=== PATIENT | male | born 1995 | race Caucasian/White ===

== ENCOUNTER → 2020-12-02 10:37 | Outpatient (CLI) | payer BC, SELFPAY ==
--- NOTE | 2020-12-02 10:41 | US_ITS ---
PROCEDURE: US EXTREMITY LT LIMITED CLINICAL INDICATION: MASS OF LT LOWER LEG COMPARISON: No exams were available for comparison FINDINGS: Ultrasound is performed of the palpable abnormality in the lateral aspect of the left knee. There is a complex mass measuring 2 x 2 cm. Anteriorly the mass has a complex cystic appearance with thickened wall and posteriorly a curvilinear cystic component wider anteriorly than posteriorly. Etiology of this is uncertain. Suggest MRI of the knee for more thorough evaluation without and with contrast. IMPRESSION: Complex cystic mass in the subcutaneous soft tissues of the left knee laterally etiology undetermined. Consider MRI of the knee without and with contrast for further evaluation. Dictated by: Jacinto Rubio MD 12/02/2020 16:40 Jacinto Rubio MD in [place] 12/02/2020 16:40
== END ==
PROVIDERS: PCP Physician Assistant; Visit Provider Physician Assistant
DX: R22.42 Localized swelling, mass and lump, left lower limb (principal)
CPT/HCPCS: 76882

== ENCOUNTER → 2020-12-15 13:34 | Outpatient (CLI) | payer BC, SELFPAY ==
--- NOTE | 2020-12-15 13:36 | MR_ITS ---
PROCEDURE INFORMATION: Exam: MR Left Lower Extremity Joint Without and With Contrast, Knee Exam date and time: 12/15/2020 1:36 PM Age: 25 years old Clinical indication: Other: Mass on left knee; Additional info: Leg mass TECHNIQUE: Imaging protocol: MR of the Left lower extremity joint without and with contrast. Exam focused on the knee. Contrast material: PROHANCE; Contrast volume: 19 ml; Contrast route: IV; COMPARISON: US EXTREMITY LT LIMITED 12/02/2020 10:43 AM FINDINGS: Limitations: The 4 mm slice thickness utilized on the majority of the sequences is suboptimal for assessing the menisci. Bones and cartilage: Increased T2 signal within the medial femoral condyle cartilage at the level of the posterior horn of the medial meniscus is favored to represent grade I chondromalacia (series 4/image 8). There is no acute fracture or dislocation. No aggressive bone lesions are present. A benign bone island is incidentally noted. Joint spaces: No significant joint effusion. Medial meniscus: A probable vertical longitudinal tear involves the medial meniscus posterior horn near the apex and posterior root (series 4/images 9-11, series 9/images 1-3). Lateral meniscus: The lateral meniscus shows no evidence of tear. Anterior cruciate ligament: The anterior cruciate ligament is poorly delineated with an equivocal few fibers remaining intact. A chronic high-grade partial-thickness tear is suspected. Recommend correlation with clinical stability. Posterior cruciate ligament: The posterior cruciate ligament is intact. Medial capsule and supporting structures: The medial collateral ligament is intact. Lateral capsule and supporting structures: The lateral collateral ligament complex is intact. Extensor mechanism of knee: No tear. Variable signal involving the extensor mechanism on the sagittal sequence is likely due to magic angle artifact. Muscles: Unremarkable. Soft tissues: The palpable mass along the lateral aspect of the left knee corresponds to a benign multiloculated ganglion cyst that arises from the tibiofibular joint. The cyst has normal mild peripheral enhancement without central enhancement. The cysts has an S-shaped configuration involving a 1.8 x 1.7 x 1.5 cm region, as measured on series 3/image 20 and series 7/image 15. The small neck arising from the tibiofibular joint is best seen on series 7/image 17 and series 4/images 20-22. An additional ganglion cyst arises from the posterior aspect of the tibiofibular joint involving approximately a 1.6 x 0.6 cm region (series 7/image 21). IMPRESSION: 1. Palpable mass along the lateral aspect of the left knee corresponds to a benign ganglion cyst measuring 1.8 x 1.7 x 1.5 cm arising from the tibiofibular joint. 2. Poorly delineated anterior cruciate ligament with a chronic high-grade partial-thickness tear suspected. Recommend correlation with clinical stability. 3. Probable longitudinal tear of the medial meniscus posterior horn near the apex. 4. 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 5. Additional ganglion cyst arising from the posterior aspect of the tibiofibular joint measuring 1.6 x 0.6 cm.
== END ==
PROVIDERS: PCP Physician Assistant; Visit Provider Physician Assistant
DX: R22.40 Localized swelling, mass and lump, unspecified lower limb (principal)
CPT/HCPCS: 73723; A9576

== ENCOUNTER → 2020-12-21 16:21 | Outpatient (CLI) | payer BC, SELFPAY ==
[2020-12-21 17:32] LABS: Basophils % 0.6 % (0.1-2.0); Eosinophils % 0.4 % (0.1-12.0); Hematocrit 45.5 % (42.0-52.0); Lymphocytes # 0.6 K/mm3 (0.7-4.5); Lymphocytes % 11.4 % (10-50); Mean Corpuscular HGB Conc 32.9 g/dL (31.8-35.4); Monocytes # 0.7 K/mm3 (0.1-1.0); Monocytes % 13.1 % (1.7-9.3); Neutrophils # 4.2 K/mm3 (1.8-7.8); Neutrophils % 74.5 % (37.0-80.0); Platelet Count 199 K/mm3 (142-424); Red Blood Count 5.17 M/mm3 (4.60-6.20); Red Cell Distribution Width 11.9 % (11.5-17.5); White Blood Count 5.6 K/mm3 (4.8-10.8)
[2020-12-21 18:44] LABS: Strep Scrn Group A (Rapid) Negative (Negative)
== END ==
PROVIDERS: PCP Nurse Practitioner; Visit Provider Nurse Practitioner
DX: Z20.822 Contact with and (suspected) exposure to COVID-19 (principal); U07.1 COVID-19; J02.9 Acute pharyngitis, unspecified
CPT/HCPCS: 85025; 87275; 87276; 87430; C9803; U0003; U0005

== ENCOUNTER → 2020-12-29 15:48 | Outpatient (CLI) | payer BC, SELFPAY ==
[2020-12-29] VITALS (7 sets, daily range): BP systolic 107–130; BP diastolic 63–73; PULSE 73–83; RESP 18; TEMP 36.4–36.7; O2SAT 94–97
== END ==
PROVIDERS: PCP Nurse Practitioner; Visit Provider Nurse Practitioner
DX: U07.1 COVID-19 (principal)
CPT/HCPCS: 96365

== ENCOUNTER 2021-02-05 19:10 | Emergency (ER) | payer BC, SELFPAY ==
[2021-02-05 19:18] VITALS: BP 148/76; PULSE 85; RESP 16; TEMP 37.1; O2SAT 97; BMI 38.9
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
[2021-02-05 20:11] VITALS: BP 148/76; PULSE 85; RESP 16; TEMP 37.1
== END 2021-02-05 20:13 | disposition home or self-care (01) ==
PROVIDERS: Emergency Provider Nurse Practitioner; PCP Nurse Practitioner
DX: T23.242A Burn of second degree of multiple left fingers (nail), including thumb, initial encounter (principal); X02.0XXA Exposure to flames in controlled fire in building or structure, initial encounter; Y92.010 Kitchen of single-family (private) house as the place of occurrence of the external cause; Z23 Encounter for immunization; Z88.0 Allergy status to penicillin
CPT/HCPCS: 90471; 90715; 99202; G0463

== ENCOUNTER 2022-06-30 10:22 | Emergency (ER) | payer BC, SELFPAY ==
[2022-06-30 11:03] VITALS: BP 124/70; PULSE 85; RESP 18; TEMP 36.8; O2SAT 97; BMI 39.6
--- NOTE | 2022-06-30 11:11 | EXP.UTC ---
Discharge Plan Disposition Patient Disposition: Home, Self-Care Condition: Good Prescriptions Prescriptions: New azithromycin [Zithromax Z-Efarin] 250 mg tablet See Rx Instructions .ROUTE .COMPLEX 5 Days Qty: 6 0RF Rx Instructions: For 250 mg dose pack: take 500 mg today (day 1), then 250 mg for 4 days (days 2-5) methylprednisolone [Medrol (Efrain)] 4 mg tablets,dose pack See Rx Instructions .Route .COMPLEX 6 Days Qty: 21 0RF Rx Instructions: taper pack; Referrals Follow up/Referrals: Provider,Referral, [Primary Care Provider] - See instructions Activity Restrictions/Add. Instructions Additional Instructions/Restrictions: *Monitor Temp, Over the counter Motrin or Tylenol as directed/as needed Tylenol every 4 hours and Motrin every 6 hours (as long as your family doctor has told you that you can take it) for fever or pain. and straight to ER if unable to lower temp less than 101.0 after medication given *Warm salt water gargles may help to soothe the throat *Throat Lozenges? *Warm fluids like tea with honey may help to soothe the throat? *Sleep elevated *Humidifier/Vaporizer Your throat swab was sent for culture. Those results are typically sent to your primary care. Be sure to follow up in 2-3 days with your family doctor/primary care physician if no improvement so they can review those result and treat if necessary. If you don?t have a primary care doctor, I recommend you get one but in the mean time, you will have to return to a walk in clinic Follow up IMMEDIATELY for new or worsening symptoms or no Noticeable improvement over the next 48-72 hours. 911 for difficulty breathing or swallowing Clinical Impressions Clinical Impression: URI (upper respiratory infection) Stand Alone Forms Stand Alone Forms: Work/School Release Instructions Patient Instructions: Sore Throat, DI for Sinusitis [place]charge [place] Cindi [place] [facility] [place] General Stated complaint: sore throat, congestion, body aches, [place] Mode of Arrival: Ambulatory Source of Information: Patient Limitations: No Limitations Time Seen by Provider: 06/30/22 11:11 Description of Symptoms (Recalled from Triage Doc. by RN): PT STATES HE HAS HAD A SORE THROAT, BODY ACHES, HEADACHE, CONGESTION, COUGH, AND FEVER FOR 2 DAYS HEENT Symptoms (Recalled from RN notes): Yes (SORE THROAT, HEADACHE) Resp Symptoms (Recalled from RN notes): Yes (COUGH) Skin Symptoms (Recalled from RN notes): No MS Symptoms (Recalled from RN notes): No Functional Status (Recalled from RN notes): WNL History of Present Illness Provider Complaint: Patient states that he has been having sinus pressure and pain on and off for close to a week but for the last couple of days he has been having fever, chills, body aches, headache and sore throat States that today he was feeling worse so he came in Related Data Previous Rx's Medication Instructions Recorded azithromycin 250 mg tablet See Rx Instructions PO .COMPLEX 5 06/30/22 (Zithromax Z-Efrain) days #6 tabs methylprednisolone 4 mg tablets in See Rx Instructions .Route 06/30/22 a dose pack (Medrol (Efrain)) .COMPLEX 6 days #21 tabs Allergies Allergy/AdvReac Type Severity Reaction Status Date / Time Penicillins Allergy Intermediate Verified 12/29/20 11:34 Worker's Comp Is this a Worker's Comp case?: No Is this an H Worker's Comp?: No Is this a Rodney Worker's Comp?: No [facility] Disclaimer: The information contained in this section may have been updated after the patient was seen, as this information can be updated by other users. Social History Smoking Status: Unknown if ever smoked alcohol intake: never current occupational status: employed Travel in the last 8 weeks: None ROS Obtained: Yes All systems reviewed & no additional complaints except as documented and Yes Systems reviewed as appropriate & no additional complaints except as documented ENT Ears, Nose,
[2022-06-30 11:14] LABS: UTC Strep Screen (Rapid) Negative (Negative)
[2022-06-30 11:57] VITALS: BP 124/70; PULSE 85; RESP 18; TEMP 36.8; O2SAT 97
[2022-06-30 12:24] LABS: Influenza A, PCR Not Detected (NotDetected); Influenza B, PCR Not Detected (NotDetected)
[2022-06-30 13:52] LABS: Coronavirus 19, PCR Detected (NotDetected)
== END 2022-06-30 12:07 | disposition home or self-care (01) ==
PROVIDERS: Emergency Provider Nurse Practitioner
DX: U07.1 COVID-19 (principal); J01.90 Acute sinusitis, unspecified; J06.9 Acute upper respiratory infection, unspecified; R07.0 Pain in throat; R50.9 Fever, unspecified
CPT/HCPCS: 87880; 99212; 99214; C9803; G0463; U0003; U0005

== ENCOUNTER 2023-09-18 16:31 | Emergency (ER) | payer BC, SELFPAY ==
--- NOTE | 2023-09-18 16:57 | EXP.UTC ---
Discharge Plan Disposition Patient Disposition: Home, Self-Care Condition: Good Prescriptions Prescriptions: New ondansetron 4 mg Tablet,Disintegrating 4 mg PO Q8H PRN (Reason: Nausea) Qty: 12 0RF Referrals Follow up/Referrals: Provider,Referral, MD [Primary Care Provider] - See instructions Activity Restrictions/Add. Instructions Additional Instructions/Restrictions: Drink plenty of fluids. Take tylenol for pain or fever. Take the medications as directed. Follow up with your regular doctor. GO TO THE ER FOR ANY WORSENING SYMPTOMS Clinical Impressions Clinical Impression: Gastroenteritis Stand Alone Forms Stand Alone Forms: Work/School Release Instructions Patient Instructions: Viral Gastroenteritis, DI for Viral Gastroenteritis -- Adult, Ondansetron Discharge ED Provider: Tino Melendez [facility] [place] General Stated complaint: diarrhea, body aches, upset stomach Time Seen by Provider: 09/18/23 16:57 Related Data Previous Rx's Medication Instructions Recorded ondansetron 4 mg disintegrating 4 mg PO Q8H PRN Nausea #12 tabs 09/18/23 tablet Allergies Allergy/AdvReac Type Severity Reaction Status Date / Time Penicillins Allergy Intermediate Verified 09/18/23 17:05 [facility] Disclaimer: The information contained in this section may have been updated after the patient was seen, as this information can be updated by other users. Social History Smoking Status: Unknown if ever smoked alcohol intake: never current occupational status: employed Travel in the last 8 weeks: None ROS Obtained: Yes All systems reviewed & no additional complaints except as documented Constitutional Constitutional: Denies chills, Denies fever(s) and Reports poor appetite ENT Ears, Nose, Mouth, and Throat: Denies dizziness and Denies sore throat Cardiovascular Cardiovascular: Denies dyspnea Respiratory Respiratory: Denies chest congestion, Denies cough and Denies dyspnea Gastrointestinal Gastrointestingal: Reports as per HPI, cramping, diarrhea, nausea and vomiting; Denies abdominal pain Musculoskeletal Musculoskeletal: Denies arthralgias Integumentary/Breasts Skin/Breast: Denies rash Neurologic Neurologic: Denies dizziness Physical Exam General General appearance: alert and in no apparent distress Head Head exam: atraumatic and normocephalic Eye Eye exam: Present normal appearance, PERRL and EOMI ENT ENT exam: Present normal exam, normal oropharynx, mucous membranes moist, TM's normal bilaterally and normal external ear exam Neck Neck exam: Present normal inspection, full ROM and trachea midline; Absent tenderness, meningismus or lymphadenopathy Chest Chest inspection: Present normal inspection and symmetric chest wall rise; Absent tenderness, rash or abscess Respiratory Respiratory exam: Present normal lung sounds bilaterally; Absent respiratory distress, wheezes or stridor Cardiovascular Cardiovascular exam: Present regular rate and normal rhythm; Absent irregular rhythm, systolic murmur, diastolic murmur or JVD Abdominal Exam Abdominal exam: Present soft and hyperactive bowel sounds; Absent distention, tenderness, guarding, rebound, rigidity, psoas sign, obturator sign, heel tap sign, Sandoval's sign, Rovsing's sign or tenderness at McBurney's Point Extremities Exam Extremities exam: Present normal inspection and full ROM; Absent tenderness Back Exam Back exam: Present normal inspection and full ROM; Absent tenderness, CVA tenderness (R) or CVA tenderness (L) Neurological Exam Neurological exam: Present alert, oriented X3 and CN II-XII intact Psychiatric Psychiatric exam: Present normal affect and normal mood Skin Skin exam: Present warm, dry, intact and normal color Lymphatic Lymphatic Findings: no adenopathy Medical Decision Making Medical Records Medical records reviewed: No I reviewed the patient's medical records. Vinnie Inquiry Pt receiving controlled substance: No
[2023-09-18 17:00] VITALS: BP 152/77; PULSE 86; RESP 18; TEMP 36.6; O2SAT 97; BMI 38.9
[2023-09-18 17:25] VITALS: BP 152/77; PULSE 86; RESP 18; TEMP 36.6; O2SAT 97
== END 2023-09-18 17:25 | disposition home or self-care (01) ==
PROVIDERS: Emergency Provider Nurse Practitioner Family
DX: K52.9 Noninfective gastroenteritis and colitis, unspecified (principal); R11.2 Nausea with vomiting, unspecified
CPT/HCPCS: 99212; 99214; G0463

== ENCOUNTER 2024-03-27 18:47 | Emergency (ER) | payer BC, SELFPAY ==
[2024-03-27 18:48] VITALS: BP 133/94; PULSE 74; RESP 16; TEMP 37.1; O2SAT 99; BMI 40.7
--- NOTE | 2024-03-27 18:49 | HMH.EDGENADL ---
Discharge Plan Disposition Patient Disposition: Home, Self-Care Condition: Fair Prescriptions Prescriptions: No Action ondansetron 4 mg Tablet,Disintegrating 4 mg PO Q8H PRN (Reason: Nausea) Qty: 12 0RF Referrals Follow up/Referrals: Provider,Referral, MD [Primary Care Provider] - See instructions Activity Restrictions/Add. Instructions Additional Instructions/Restrictions: As we discussed please go to [facility] for further evaluation by mental health professionals. Utilize the resources that the hris specialist mentioned to you. Follow-up with your PCP or return to the ER for any worsening signs or symptoms as needed. Clinical Impressions Clinical Impression: Cannabis use disorder, Alcohol use disorder, Anxiety, generalized Depression Qualifiers: Depression Type: unspecified Qualified Code(s): F32.A - Depression, unspecified Print Language Print Language: Syriac Discharge ED Provider: João Dias General Adult HPI <PETER Muro - Last Filed: 03/27/24 20:38> General Chief complaint: Psychiatric Symptoms Stated complaint: mental health issues Time Seen by Provider: 03/27/24 18:49 History of Present Illness HPI narrative: Patient presents for evaluation of depression and anxiety and polysubstance use. Patient presents at the behest of his employer and their crisis hotline for feelings of anxiety depression and long-term substance use. Patient has been drinking and utilizing marijuana for a long period of time. He states that he has been utilizing them to self medicate for trauma . Patient does not elaborate of what the trauma might be. He is accompanied by his ex- who cooperates most of his story. 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 Patient denies however audio or visual hallucinations suicidal or homicidal ideations. Did ask if he is seeking inpatient or outpatient care and at this point patient is not sure. Related Data Previous Rx's ?Medication ?Instructions ?Recorded ondansetron 4 mg disintegrating 4 mg PO Q8H PRN Nausea #12 tabs 09/18/23 tablet Allergies Allergy/AdvReac Type Severity Reaction Status Date / Time Penicillins Allergy Intermediate Verified 09/18/23 17:05 PFSH <PETER Muro - Last Filed: 03/27/24 20:38> [facility] Disclaimer: The information contained in this section may have been updated after the patient was seen, as this information can be updated by other users. Social History Smoking Status: Never smoker alcohol intake: never current occupational status: employed Travel in the last 8 weeks: None Have you lived/traveled outside US in past 30 days?: No Contact w/someone who lives/traveled outside US past 30 days?: No Exposure to someone with infectious disease in past 14 days?: No Do you have a fever (greater than 100.4 F or 38 C)?: No Have you tested positive for COVID-19: No Exposed to someone with COVID-19 in past 14 days?: No Do you have a sore throat?: No Do you have a cough?: No Do you have any weakness?: No Do you have any diarrhea?: No Are you experiencing any unusual bleeding?: No Do you have any muscle aches/pain?: No Do you have any abdominal pain?: No Are you experiencing loss of taste or smell?: No <PETER Muro - Last Filed: 03/27/24 20:38> ROS Obtained: Yes Systems reviewed as appropriate & no additional complaints except as documented Physical Exam <PETER Muro - Last Filed: 03/27/24 20:38> General General appearance: alert and in no apparent distress Respiratory Respiratory exam: Present normal lung sounds bilaterally Cardiovascular Cardiovascular exam: Present regular rate Neurological Exam Neurological exam: Present alert and oriented X3 Medical Decision Making <PETER Muro - Last Filed: 03/27/24 20:38> Medical Records Medical records reviewed: Yes I reviewed the patient's medical records. Screening: Per USPSTF and CDC recommendations, given the prevalence of disease in our region, it is our hospital?s policy to screen for HIV and viral Hepatitis for all patients aged 18 and over and those with ongoing risk factors. Vinnie Inquiry Pt receiving controlled substance: No Vital Signs: 03/27/24 18:48 03/27/24 19:02 03/27/24 19:15 Temperature 98.7 F Temperature Source Oral Pulse Rate 64 66 Pulse Rate [Left Radial] 74 Respiratory Rate 16 Blood Pressure 162/112 H 133/94 H Blood Pressure [Right Arm] 133/94 H Blood Pressure Mean [Right Arm] 107 Blood Pressure Source Blood Pressure Source [Right Arm] Automatic Cuff Blood Pressure Position Blood Pressure Position [Right Arm] Sitting 02 Sat by Pulse Oximetry 99 99 98 Oxygen Delivery Method Room Air 03/27/24 20:48 Temperature 97.9 F Temperature Source Oral Pulse Rate 90 Pulse Rate [Left Radial] Respiratory Rate 18 Blood Pressure 138/77 Blood Pressure [Right Arm] Blood Pressure Mean [Right Arm] Blood Pressure Source Automatic Cuff Blood Pressure Source [Right Arm] Blood Pressure Position Supine Blood Pressure Position [Right Arm] 02 Sat by Pulse Oximetry Oxygen Delivery Method Room Air Lab Data Lab results reviewed: Yes I reviewed the patient's lab results. Lab Results 03/27/24 20:40: WBC 9.8, RBC 5.58, Hgb 16.3, Hct 46.6, MCV 83.5, MCH 29.2, MCHC 35.0, RDW 11.5, Plt Count 333, MPV 9.3, Neut % (Auto) 75.8, Lymph % (Auto) 15.3, Becker % (Auto) 8.0, Eos % (Auto) 0.1, Baso % (Auto) 0.5, Neut # (Auto) 7.4, Lymph # (Auto) 1.5, Becker # (Auto) 0.8, Eos # (Auto) 0.0, Baso # (Auto) 0.1 03/27/24 20:40 Orders (Tests/Meds): ORDERS Category Date Time Status Consult Instructional Resource Teacher [CONS] Routine Cons 03/27/24 19:07 Active Acetaminophen Stat Lab 03/27/24 20:40 Received CBC w/Auto Diff [Complete Blood Count Auto Diff] Stat Lab 03/27/24 20:40 Completed CMP [Comprehensive Metabolic Panel] Stat Lab 03/27/24 20:40 Received Ethyl Alcohol Stat Lab 03/27/24 20:40 Received Magnesium Stat Lab 03/27/24 20:40 Received Salicylate Stat Lab 03/27/24 20:40 Received Thyroid Panel Stat Lab 03/27/24 20:40 Received UDS [Drug Screen,Urine] Stat Lab 03/27/24 19:06 Ordered Medical Decision Narrative: In summary patient is a 29-year-old male who presents to the emergency department for evaluation of psychiatric distress and polysubstance use. Patient is hemodynamically stable upon arrival, afebrile. Physical exam is remarkable for a well-nourished well-developed 29-year-old gentleman who otherwise is in no acute distress. He has a flat affect. However he is awake alert and oriented to person place and circumstance Paul Coma Score is 15 cranial nerves II through XII are intact grossly to exam. Patient denies that he has suicidal or homicidal ideations or visual or auditory hallucinations. Patient is agreeable to a verbal contract to no self-harm currently.. Differential diagnosis includes polysubstance use versus anxiety versus depression versus suicidal ideations although patient denies such currently etc. Initial workup will be conducted with hematologic labs EKG urinalysis urine drug screen. Initial interventions include appears clinical support specialist consult. Initial workup reviewed by me as his hematologic labs are nonactionable. Peer support consult has supported patient is seeking inpatient psychiatric care for polysubstance abuse as well as his mental health issues. Upon repeat evaluation patient is agreeable to voluntary psych evaluation at the [facility]. His ex- is supportive of this and will transport him there. He remains without suicidal or homicidal ideation. Given this patient is appropriate for discharge in the care of his to go to the [facility] for further evaluation and care. <João Dias MD - Last Filed: 03/27/24 21:24> Vital Signs: 03/27/24 18:48 03/27/24 19:02 03/27/24 19:15 Temperature 98.7 F Temperature Source Oral Pulse Rate 64 66 Pulse Rate [Left Radial] 74 Respiratory Rate 16 Blood Pressure 162/112 H 133/94 H Blood Pressure [Right Arm] 133/94 H Blood Pressure Mean [Right Arm] 107 Blood Pressure Source Blood Pressure Source [Right Arm] Automatic Cuff Blood Pressure Position Blood Pressure Position [Right Arm] Sitting 02 Sat by Pulse Oximetry 99 99 98 Oxygen Delivery Method Room Air 03/27/24 20:48 Temperature 97.9 F Temperature Source Oral Pulse Rate 90 Pulse Rate [Left Radial] Respiratory Rate 18 Blood Pressure 138/77 Blood Pressure [Right Arm] Blood Pressure Mean [Right Arm] Blood Pressure Source Automatic Cuff Blood Pressure Source [Right Arm] Blood Pressure Position Supine Blood Pressure Position [Right Arm] 02 Sat by Pulse Oximetry Oxygen Delivery Method Room Air Lab Data Lab Results 03/27/24 20:40: WBC 9.8, RBC 5.58, Hgb 16.3, Hct 46.6, MCV 83.5, MCH 29.2, MCHC 35.0, RDW 11.5, Plt Count 333, MPV 9.3, Neut % (Auto) 75.8, Lymph % (Auto) 15.3, Becker % (Auto) 8.0, Eos % (Auto) 0.1, Baso % (Auto) 0.5, Neut # (Auto) 7.4, Lymph # (Auto) 1.5, Becker # (Auto) 0.8, Eos # (Auto) 0.0, Baso # (Auto) 0.1 Orders (Tests/Meds): ORDERS Category Date Time Status Consult Instructional Resource Teacher [CONS] Routine Cons 03/27/24 19:07 Active Acetaminophen Stat Lab 03/27/24 20:40 Received CBC w/Auto Diff [Complete Blood Count Auto Diff] Stat Lab 03/27/24 20:40 Completed CMP [Comprehensive Metabolic Panel] Stat Lab 03/27/24 20:40 Received Ethyl Alcohol Stat Lab 03/27/24 20:40 Received Magnesium Stat Lab 03/27/24 20:40 Received Salicylate Stat Lab 03/27/24 20:40 Received Thyroid Panel Stat Lab 03/27/24 20:40 Received UDS [Drug Screen,Urine] Stat Lab 03/27/24 19:06 Ordered Medical Decision Narrative: In summary patient is a 29-year-old male who presents to the emergency department for evaluation of psychiatric distress and polysubstance use. Patient is hemodynamically stable upon arrival, afebrile. Physical exam is remarkable for a well-nourished well-developed 29-year-old gentleman who otherwise is in no acute distress. He has a flat affect. However he is awake alert and oriented to person place and circumstance [place] Coma Score is 15 cranial nerves II through XII are intact grossly to exam. Patient denies that he has suicidal or homicidal ideations or visual or auditory hallucinations. Patient is agreeable to a verbal contract to no self-harm currently.. Differential diagnosis includes polysubstance use versus anxiety versus depression versus suicidal ideations although patient denies such currently etc. Initial workup will be conducted with hematologic labs EKG urinalysis urine drug screen. Initial interventions include appears clinical support specialist consult. Initial workup reviewed by me as his hematologic labs are nonactionable. Peer support consult has supported patient is seeking inpatient psychiatric care for polysubstance abuse as well as his mental health issues. Upon repeat evaluation patient is agreeable to voluntary psych evaluation at the [facility]. His ex- is supportive of this and will transport him there. He remains without suicidal or homicidal ideation. Given this patient is appropriate for discharge in the care of his to go to the [facility] for further evaluation and care. MANUEL attestation I was consulted by the MANUEL, and we discussed the complexity of problems being addressed. I approved the treatment and management plan for this patient's care in the emergency department, thus performing a substantial portion of the medical decision making. João Dias MD Critical Care <PETER Muro - Last Filed: 03/27/24 20:38> Critical Care Time Critical Care Time: No
[2024-03-27 19:02] VITALS: BP 162/112; PULSE 64; O2SAT 99
[2024-03-27 19:15] VITALS: BP 133/94; PULSE 66; O2SAT 98
--- NOTE | 2024-03-27 19:17 | ECG_ITS ---
APPROVED REPORT Exam: Resting ECG HR:57 bpm ECG Measurements Heart Rate 57 AXES MI 201 P 55 QRSd 88 QRS -25 QT 422 T 50 QTc 417 Conclusion SINUS BRADYCARDIA WITH SINUS ARRHYTHMIA BORDERLINE LEFT AXIS DEVIATION [QRS AXIS < -20] NONSPECIFIC T-WAVE ABNORMALITY BORDERLINE ECG UNCONFIRMED REPORT Electronically signed by : João Dias, 03/27/2024 21:29:21
[2024-03-27 20:48] VITALS: BP 138/77; PULSE 90; RESP 18; TEMP 36.6; O2SAT 98
--- NOTE | 2024-03-27 20:50 | PC.NURSE ---
IV removed. Catheter tip intact. Bleeding controlled.
[2024-03-27 21:06] LABS: Basophils % 0.5 % (0.1-2.0); Eosinophils % 0.1 % (0.1-12.0); Hematocrit 46.6 % (42.0-52.0); Hemoglobin 16.3 g/dL (14.1-18.0); Lymphocytes # 1.5 K/mm3 (0.7-4.5); Lymphocytes % 15.3 % (10-50); Mean Corpuscular Hemoglobin 29.2 pg (27.0-31.2); Mean Corpuscular Volume 83.5 fl (80-94); Mean Platelet Volume 9.3 fl (7.4-10.4); Monocytes # 0.8 K/mm3 (0.1-1.0); Neutrophils # 7.4 K/mm3 (1.8-7.8); Neutrophils % 75.8 % (37.0-80.0); Platelet Count 333 K/mm3 (142-424); Red Blood Count 5.58 M/mm3 (4.60-6.20); Red Cell Distribution Width 11.5 % (11.5-17.5); White Blood Count 9.8 K/mm3 (4.8-10.8)
[2024-03-27 21:07] LABS: Basophils # 0.1 K/mm3 (0-0.2)
--- NOTE | 2024-03-27 21:11 | PEERSUPPORT ---
Peer Support Note Patient Information Patient Information: DOS: 03/27/2024 ? Reason: AUD/MH ? ?Ex- at bedside supportive. Pt gives consent for ps. ? Patient stated he has drank up to two cases of beer per week for the past year. He says he has not drank since Monday. He is comfortable to briefly share his history with losing both parents within one year apart at 14 years old. He says his mental health has been something he has denied to be an issue for majority of his life until now. ? He started smoking a THC Delta 8 pin within the past few months now realizing he is addicted to it. ? He has used drugs and alcohol to numb or fill the void and even then it only brings him relief mentally when he is asleep or passed out. ? ? He has never sought out treatment for his mental health nor been medicated for any mental health issues. ? Ps shared personal relevant experiences to encourage acknowledgement of mental health and JOSE going hand in hand. ? Pt does become emotionally tearful, admitting he does need help. Ps discusses options of treatment for inpatient dual diagnosis: [facility]-? ? Patients ex- is aware and suggest the same agreeing to transport him tonight to receive the care needed. ? Ps provided Family medical leave act information to ease stress of work expectations supportive to care for mental health. ? Pt agreed to follow up with [facility] Peer support following treatment for after care connections to the recovery community.
[2024-03-27 21:22] LABS: Alanine Aminotransferase 29 U/L (12-78); Albumin/Globulin Ratio 1.7 (1.1-1.8); Alkaline Phosphatase 57 U/L (38-126); Aspartate Amino Transferase 39 U/L (17-59); Bilirubin,Total 1.1 mg/dl (0.2-1.3); Blood Urea Nitrogen 6 mg/dl (9-20); Calcium 9.7 mg/dl (8.4-10.2); Carbon Dioxide 31 mmol/L (22.0-30.0); Chloride 100 mmol/L (98-107); Creatinine Clearance Estimated 232 mL/min (50-200); Estimated Glomerular Filt Rate 134 ml/min (>60); GFR (African American) 162 ML/MIN (>60); Glucose 110 mg/dl (74-100); Magnesium 2.3 mg/dl (1.6-2.3); Sodium 141 mmol/L (136-145)
[2024-03-27 21:26] LABS: Acetaminophen < 10 ug/ml (10-30); Ethyl Alcohol < 10 mg/dl (0-10); Salicylate < 1.0 mg/dL (2.0-20.0)
[2024-03-27 21:29] LABS: Anion Gap 13.1 mEq/L (5-15); Potassium 3.1 mmoL/L (3.5-5.1)
[2024-03-27 21:38] LABS: Free Thyroxine Index 4.3 ug/dL (5.93-13.13); T4 (Thyroxine) 11.2 ug/dl (5.53-11.0); Triiodothryronine (T3) Uptake 38 % (23.5-40.5)
[2024-03-27 21:52] LABS: Thyroid Stimulating Hormone 0.64 uIU/mL (0.465-4.68)
== END 2024-03-27 21:08 | disposition home or self-care (01) ==
PROVIDERS: Physician Assistant; Emergency Provider Student in an Organized Health Care Education/Training Program
DX: F41.1 Generalized anxiety disorder (principal); F32.A Depression, unspecified; F10.90 Alcohol use, unspecified, uncomplicated; F12.90 Cannabis use, unspecified, uncomplicated; Y90.0 Blood alcohol level of less than 20 mg/100 ml
CPT/HCPCS: 80050; 80053; 80320; 80329; 83735; 84436; 84443; 84479; 85025; 93005; 99283; G0480

== ENCOUNTER 2024-03-28 08:23 | Emergency (ER) | payer BC, SELFPAY ==
[2024-03-28 08:24] VITALS: BP 151/103; PULSE 83; RESP 18; TEMP 36.5; O2SAT 98; BMI 36.3
[2024-03-28 08:45] VITALS: BP 143/111; PULSE 97; O2SAT 98
--- NOTE | 2024-03-28 08:51 | ED_ITS ---
Discharge Plan Disposition Patient Disposition: Xfer Psychiatric Hosp Prescriptions Prescriptions: No Action ondansetron 4 mg Tablet,Disintegrating 4 mg PO Q8H PRN (Reason: Nausea) Qty: 12 0RF Referrals Follow up/Referrals: Provider,Referral, MD [Primary Care Provider] - See instructions Clinical Impressions Clinical Impression: Suicidal ideation, Cannabis abuse, Alcohol abuse, Hypokalemia Print Language Print Language: Citizen Of [place] Discharge ED Provider: Kayla Mccall General Adult HPI General Chief complaint: Psychiatric Symptoms Stated complaint: mental issues Time Seen by Provider: 03/28/24 08:31 History of Present Illness HPI narrative: This patient is a 29-year-old male with a history of alcohol use disorder, cannabis use disorder, and depression presenting to the emergency department for evaluation with concern for suicidal thoughts. Patient was evaluated here yesterday because he states that his mental health is poor and he wants help. He has had some unusual behavior at work prompting crisis evaluation and referral to ED. Here, he was evaluated and deemed to be a voluntary referral to the [facility]. He went to the [facility], and he states that he was evaluated there and told that he does not meet inpatient criteria for evaluation but could follow-up on an outpatient basis. Patient reports that since being discharged from the [facility] after evaluation, he feels like he cannot go on anymore. He states that he feels like he is going to kill himself and has a plan to shoot himself or just whatever. He states that he does not feel that he can go on with work or his life. He notes that he is had issues with alcohol abuse and marijuana use for 15 years, as he is been self-medicating for trauma. He denies any recent attempt to harm himself, but he states he did try when he was younger but no one knows about it. He reports he is willing to go voluntarily again today for psychiatric evaluation if deemed appropriate As far as his alcohol abuse, he states that he has not had anything to drink since Monday. He denies any history of alcohol withdrawals. He typically would drink 3 beers a day. Related Data Previous Rx's ?Medication ?Instructions ?Recorded ondansetron 4 mg disintegrating 4 mg PO Q8H PRN Nausea #12 tabs 09/18/23 tablet Allergies Allergy/AdvReac Type Severity Reaction Status Date / Time Penicillins Allergy Intermediate Verified 09/18/23 17:05 [facility] Disclaimer: The information contained in this section may have been updated after the patient was seen, as this information can be updated by other users. Social History Smoking Status: Current every day smoker alcohol intake: never current occupational status: employed Travel in the last 8 weeks: None Have you lived/traveled outside US in past 30 days?: No Contact w/someone who lives/traveled outside US past 30 days?: No Exposure to someone with infectious disease in past 14 days?: No Do you have a fever (greater than 100.4 F or 38 C)?: No Have you tested positive for COVID-19: No Exposed to someone with COVID-19 in past 14 days?: No Do you have a sore throat?: No Do you have a cough?: No Do you have any weakness?: No Do you have any diarrhea?: No Are you experiencing any unusual bleeding?: No Do you have any muscle aches/pain?: No Do you have any abdominal pain?: No Are you experiencing loss of taste or smell?: No ROS Obtained: Yes All systems reviewed & no additional complaints except as documented Physical Exam General General appearance: alert and in no apparent distress Head Head exam: atraumatic and normocephalic Eye Eye exam: Present normal appearance, PERRL and EOMI ENT ENT exam: Present normal exam, normal oropharynx, mucous membranes moist and normal external ear exam Neck Neck exam: Present normal inspection, full ROM and trachea midline; Absent tenderness Chest Chest inspection: Present normal inspection and symmetric chest wall rise; Absent tenderness Respiratory Respiratory exam: Present normal lung sounds bilaterally; Absent respiratory distress, wheezes, stridor or accessory muscle use Cardiovascular Cardiovascular exam: Present regular rate and normal rhythm Abdominal Exam Abdominal exam: Present soft; Absent distention, tenderness or guarding Extremities Exam Extremities exam: Present normal inspection, full ROM and normal capillary refill; Absent tenderness or edema Back Exam Back exam: Present normal inspection and full ROM; Absent tenderness Neurological Exam Neurological exam: Present alert, oriented X3, CN II-XII intact and normal gait; Absent motor sensory deficit Psychiatric Psychiatric exam: Present flat affect and suicidal ideation Skin Skin exam: Present warm and dry Medical Decision Making Medical Records Medical records reviewed: Yes I reviewed the patient's medical records. Screening: Per USPSTF and CDC recommendations, given the prevalence of disease in our region, it is our hospital?s policy to screen for HIV and viral Hepatitis for all patients aged 18 and over and those with ongoing risk factors. Vinnie Inquiry Pt receiving controlled substance: No Vital Signs: 03/28/24 08:24 03/28/24 08:45 03/28/24 08:52 Temperature 97.7 F Temperature Source Oral Pulse Rate 97 H 89 Pulse Rate [Right] 83 Respiratory Rate 18 Blood Pressure 143/111 H 148/94 H Blood Pressure [Right Arm] 151/103 H Blood Pressure Mean [Right Arm] 119 Blood Pressure Source [Right Arm] Automatic Cuff 02 Sat by Pulse Oximetry 98 98 97 Oxygen Delivery Method Room Air Room Air Room Air Lab Data Lab results reviewed: Yes I reviewed the patient's lab results. Lab Results 03/28/24 08:54: Urine Color Yellow, Urine Appearance Clear, Urine pH 6.5, Ur Specific [place] 1.020, Urine Protein Trace, Urine Glucose (UA) Negative, Urine Ketones Trace, Urine Blood Negative, Urine Nitrate Negative, Urine Bilirubin Negative, Urine Urobilinogen 2.0, Ur Leukocyte Esterase Negative, Urine Opiates Screen Negative, Urine Methadone Screen Negative, Ur Barbituates Screen Negative, Ur Phencyclidine Scrn Negative, Ur Amphetamines Screen Negative, U Benzodiazepines Scrn Negative, Urine Cocaine Screen Negative, U Marijuana (THC) Screen Positive H 03/28/24 09:05: WBC 9.4, RBC 5.52, Hgb 16.0, Hct 46.2, MCV 83.7, MCH 29.0, MCHC 34.6, RDW 11.5, Plt Count 318, MPV 9.2, Neut % (Auto) 74.6, Lymph % (Auto) 14.2, [place] % (Auto) 10.2 H, Eos % (Auto) 0.2, Baso % (Auto) 0.5, Neut # (Auto) 7.0, Lymph # (Auto) 1.3, [place] # (Auto) 1.0, Eos # (Auto) 0.0, Baso # (Auto) 0.1, Sodium 136, Potassium 3.1 L, Chloride 103, Carbon Dioxide 30, Anion Gap 6.1, BUN 8 L D, Creatinine 0.80, Estimated Creat Clear 181, Estimated GFR 115, Est GFR ( Amer) 139, Glucose 123 H, Calcium 9.6, Total Bilirubin 1.3, AST 34, ALT 29, Alkaline Phosphatase 57, Total Protein 7.6, Albumin 4.8, Globulin 2.8, Albumin/Globulin Ratio 1.7, Salicylates < 1.0 L, Acetaminophen < 10 L, Plasma/Serum Alcohol < 10 03/28/24 09:05 03/28/24 09:05 Orders (Tests/Meds): ED MEDICATIONS Generic Name Dose Route Start Last Admin Trade Name Freq PRN Reason Stop Dose Admin Potassium Chloride 40 meq 03/28/24 09:39 Potassium Chloride 20meq Tab PO 03/28/24 09:40 ONCE ONE ORDERS Category Date Time Status Acetaminophen Stat Lab 03/28/24 09:05 Completed Complete Blood Count Auto Diff Stat Lab 03/28/24 09:05 Completed Comprehensive Metabolic Panel Stat Lab 03/28/24 09:05 Completed Ethyl Alcohol Stat Lab 03/28/24 09:05 Completed Salicylate Stat Lab 03/28/24 09:05 Completed UA [Urinalysis and Microscopic] Stat Lab 03/28/24 08:54 Results UDS [Drug Screen,Urine] Stat Lab 03/28/24 08:54 Completed ECG Data Tracing #1: I reviewed this ECG and interpreted as documented below: Sinus rhythm with sinus arrhythmia with a ventricular rate of 74 bpm. No acute STEMI. Normal intervals ECG initial impression date: 03/28/24 ECG initial impression time: 09:00 Medical Decision Narrative: In summary, this patient is a 29-year-old male presenting to the Emergency Department for evaluation of suicidal ideations. Differential diagnoses considered include but are not limited to suicidal ideation, homicidal ideation, depression/anxiety, substance use, alcohol withdrawal. Ruling out the most morbid conditions drove assessment. It should be noted patient's history includes polysubstance abuse which is not at goal therapy. This complicates all aspects of care by increasing patient's risk for morbidity. I reviewed patient's past medical records and noted evaluation here yesterday with concern for mood disturbance in the setting of alcohol and marijuana abuse. Patient was sent voluntarily to the [facility] for evaluation, but he denied SI/HI at that time. He was subsequently sent home from the [facility]. On exam, the patient is lying in bed in no acute distress not exhibiting any signs of withdrawal with reassuring vital signs on cardiac telemetry. He admits suicidal ideation but denies any attempt to harm himself. His plan is to shoot himself. He agrees for voluntary psychiatric evaluation and voluntary inpatient hospitalization if deemed appropriate. He was placed under suicide precautions upon arrival. Workup included CBC, CMP, acetaminophen, salicylate, ethanol level, urinalysis, urine drug screen, EKG. EKG obtained is reassuring. Labs demonstrated mild hypokalemia, for which oral replacement was ordered. CBC is reassuring, CMP otherwise reassuring. Acetaminophen, salicylate, ethanol levels negative. He is positive for marijuana on UDS. I had an interactive discussion with Dr. Sukhjinder Wills at [facility] who accepted the patient for transfer to [facility] for psychiatric evaluation. Given suicidal ideation and need for suicide precautions, patient was transported by EMS. He was transported in stable condition. Critical Care Critical Care Time Critical Care Time: Yes Attestation: On 03/28/24, the high probability of a clinically significant, sudden or life threatening deterioration of the following system(s) required my full and direct attention, intervention and personal management. The time I documented below is in addition to time spent performing reported procedures but includes the following listed in this critical care notation. Total Time Total Critical Care Time: 30
[2024-03-28 08:52] VITALS: BP 148/94; PULSE 89; O2SAT 97
--- NOTE | 2024-03-28 08:57 | ECG_ITS ---
APPROVED REPORT Exam: Resting ECG HR:74 bpm ECG Measurements Heart Rate 74 AXES CA 187 P 64 QRSd 90 QRS 13 QT 370 T 50 QTc 398 Conclusion SINUS RHYTHM WITH SINUS ARRHYTHMIA ANTEROSEPTAL MYOCARDIAL INFARCTION , OF INDETERMINATE AGE [40+ ms Q WAVE IN V1-V4] ABNORMAL ECG Electronically signed by : LEN MICHELLE, 03/28/2024 16:49:37
[2024-03-28 09:01] LABS: Microscopic, Urine URINE MICROSCOPIC (MICROSCOPIC)
--- NOTE | 2024-03-28 09:06 | PC.NURSE ---
[facility] CONTACTED, WILL CALL BACK
[2024-03-28 09:08] LABS: Appearance,Urine CLEAR (Clear); Blood, Urine Negative (Negative); Color,Urine YELLOW (Yellow); Glucose,Urine (UA) Negative (Negative); Ketones,Urine TRACE (Negative); Leukocyte Esterase,Urine Negative (Negative); Nitrate,Urine Negative (Negative); PH,Urine 6.5 (5.0-8.5); Protein,Urine TRACE (Negative)
--- NOTE | 2024-03-28 09:10 | PC.NURSE ---
DR MICHELLE SPEAKING WITH [facility]
[2024-03-28 09:20] LABS: Benzodiazepines Screen,Urine Negative ng/ml (<200)
[2024-03-28 09:21] LABS: Amphetamine/Metha Screen,Urine Negative ng/ml (<1000); Barbiturates Screen,Urine Negative ng/ml (<200); Bilirubin,Urine Negative (Negative)
[2024-03-28 09:22] LABS: Cannabinoid Screen,Urine Positive ng/ml (<50); Cocaine Screen,Urine Negative ng/ml (<300)
[2024-03-28 09:23] LABS: Methadone Screen,Urine Negative ng/ml (<300)
[2024-03-28 09:23] LABS: Albumin Level 4.8 g/dl (3.5-5.0); Chloride 103 mmol/L (98-107); Potassium 3.1 mmoL/L (3.5-5.1); Sodium 136 mmol/L (136-145)
[2024-03-28 09:24] LABS: Opiate Screen,Urine Negative ng/ml (<300); Phencyclidine Screen,Urine Negative ng/ml (<25)
[2024-03-28 09:26] LABS: Alanine Aminotransferase 29 U/L (12-78); Albumin/Globulin Ratio 1.7 (1.1-1.8); Alkaline Phosphatase 57 U/L (38-126); Anion Gap 6.1 mEq/L (5-15); Aspartate Amino Transferase 34 U/L (17-59); Bilirubin,Total 1.3 mg/dl (0.2-1.3); Blood Urea Nitrogen 8 mg/dl (9-20); Calcium 9.6 mg/dl (8.4-10.2); Carbon Dioxide 30 mmol/L (22.0-30.0); Creatinine Clearance Estimated 181 mL/min (50-200); Estimated Glomerular Filt Rate 115 ml/min (>60); GFR (African American) 139 ML/MIN (>60); Globulin 2.8 g/dL (1.3-3.2); Glucose 123 mg/dl (74-100); Total Protein,Serum 7.6 g/dl (6.3-8.2)
[2024-03-28 09:30] LABS: Acetaminophen < 10 ug/ml (10-30); Ethyl Alcohol < 10 mg/dl (0-10); Salicylate < 1.0 mg/dL (2.0-20.0)
[2024-03-28 09:33] LABS: Red Blood Count 5.52 M/mm3 (4.60-6.20); White Blood Count 9.4 K/mm3 (4.8-10.8)
[2024-03-28 09:34] LABS: Basophils # 0.1 K/mm3 (0-0.2); Basophils % 0.5 % (0.1-2.0); Eosinophils % 0.2 % (0.1-12.0); Hematocrit 46.2 % (42.0-52.0); Lymphocytes # 1.3 K/mm3 (0.7-4.5); Lymphocytes % 14.2 % (10-50); Mean Corpuscular HGB Conc 34.6 g/dL (31.8-35.4); Mean Corpuscular Volume 83.7 fl (80-94); Mean Platelet Volume 9.2 fl (7.4-10.4); Monocytes % 10.2 % (1.7-9.3); Neutrophils % 74.6 % (37.0-80.0); Platelet Count 318 K/mm3 (142-424); Red Cell Distribution Width 11.5 % (11.5-17.5)
--- NOTE | 2024-03-28 09:43 | PC.NURSE ---
Called EMS and advised them of this transfer being ready to go
--- NOTE | 2024-03-28 09:46 | PC.NURSE ---
Gave report to Belinda Linn
[2024-03-28] MEDS: POTASSIUM CHLORIDE 20MEQ TAB 40 MEQ PO (09:53)
[2024-03-28 09:56] LABS: WBC,Urine Occasional #/hpf (0-3)
[2024-03-28 10:00] VITALS: BP 135/89; PULSE 85; RESP 20; TEMP 37; O2SAT 98
[2024-03-28 10:01] VITALS: BP 139/88; PULSE 78; O2SAT 99
--- NOTE | 2024-03-28 10:14 | PC.NURSE ---
[facility] here for transport, gave them bedside report
== END 2024-03-28 10:15 ==
PROVIDERS: Emergency Provider Emergency Medicine
DX: R45.851 Suicidal ideations (principal); F12.10 Cannabis abuse, uncomplicated; F10.10 Alcohol abuse, uncomplicated; E87.6 Hypokalemia; Y90.0 Blood alcohol level of less than 20 mg/100 ml
CPT/HCPCS: 80053; 80307; 80320; 80329; 81001; 85025; 93005; 99291; G0480

== ENCOUNTER 2024-04-07 10:18 | Emergency (ER) | payer BC, SELFPAY ==
--- NOTE | 2024-04-07 11:27 | ED_ITS ---
Discharge Plan Disposition Patient Disposition: Home, Self-Care Condition: Good Prescriptions Prescriptions: New rpaspdrowiqcewl-jujdjduoo-HB [Bromfed DM] 2-30-10 mg/5 mL Syrup 5 ml PO Q6H PRN (Reason: Cough) Qty: 240 0RF ondansetron 4 mg Tablet,Disintegrating 4 mg PO Q8H PRN (Reason: Nausea) Qty: 12 0RF oseltamivir [Tamiflu] 75 mg capsule 75 mg PO BID 10 Days Qty: 10 0RF No Action bupropion HCl [Wellbutrin SR] 150 mg tablet sustained-release 12 hr 150 mg PO DAILY Qty: 30 2RF Referrals Follow up/Referrals: Lucrecia Hernandez APRN [Primary Care Provider] - See instructions Activity Restrictions/Add. Instructions Additional Instructions/Restrictions: Drink plenty of fluids. Take tylenol or ibuprofen for pain or fever. Take the medications as directed. Follow up with your regular doctor. GO TO THE ER FOR ANY WORSENING SYMPTOMS Clinical Impressions Clinical Impression: Influenza A Instructions Patient Instructions: DI for Viral Syndrome Print Language Print Language: Turkish Discharge ED Provider: Tino Melendez [facility] General Stated complaint: cough, drainage, fever, scratchy throat Time Seen by Provider: 04/07/24 11:27 Related Data Previous Rx's ?Medication ?Instructions ?Recorded bupropion HCl 150 mg tablet,12 hr 150 mg PO DAILY #30 ea 04/04/24 sustained-release (Wellbutrin SR) fmylpbksrgstbut-nkkjofwescuqbnb-JV 5 ml PO Q6H PRN Cough #240 mL 04/07/24 2 mg-30 mg-10 mg/5 mL oral syrup (Bromfed DM) ondansetron 4 mg disintegrating 4 mg PO Q8H PRN Nausea #12 tabs 04/07/24 tablet oseltamivir 75 mg capsule (Tamiflu) 75 mg PO BID 10 days #10 caps 04/07/24 Allergies Allergy/AdvReac Type Severity Reaction Status Date / Time Penicillins Allergy Intermediate Verified 04/04/24 15:23 [facility] Disclaimer: The information contained in this section may have been updated after the patient was seen, as this information can be updated by other users. Social History Smoking Status: Current every day smoker alcohol intake: never current occupational status: employed Travel in the last 8 weeks: None Have you lived/traveled outside [place] in past 30 days?: No Contact w/someone who lives/traveled outside [place] past 30 days?: No Exposure to someone with infectious disease in past 14 days?: No Do you have a fever (greater than 100.4 F or 38 C)?: Yes Have you tested positive for COVID-19: No Exposed to someone with COVID-19 in past 14 days?: No Do you have a sore throat?: Yes Do you have a cough?: Yes Do you have any weakness?: No Do you have any diarrhea?: No Are you experiencing any unusual bleeding?: No Do you have any muscle aches/pain?: No Do you have any abdominal pain?: No Are you experiencing loss of taste or smell?: No ROS Obtained: Yes All systems reviewed & no additional complaints except as documented Constitutional Constitutional: Reports chills and Reports fever(s) Eyes Eyes: Denies eye discharge ENT Ears, Nose, Mouth, and Throat: Reports as per HPI Cardiovascular Cardiovascular: Denies chest pain Respiratory Respiratory: Denies chest congestion and Reports cough Gastrointestinal Gastrointestingal: Reports nausea; Denies abdominal pain, constipation, cramping, diarrhea or vomiting Musculoskeletal Musculoskeletal: Denies arthralgias Integumentary/Breasts Skin/Breast: Denies rash Neurologic Neurologic: Denies paresthesias Physical Exam General General appearance: alert and in no apparent distress Eye Eye exam: Present normal appearance, PERRL and EOMI ENT ENT exam: Present mucous membranes moist and normal external ear exam Expanded ENT Exam External ear exam: Present normal external inspection TM/Canal exam: Bilateral TM: erythema and bulging Nose exam: Absent sinus tenderness Nasal speculum exam: Bilateral: normal Mouth exam: Present normal external inspection; Absent drooling Teeth exam: Present normal inspection Throat exam: Present tonsillar erythema and tonsillomegaly Neck Neck exam: Present normal inspection, full ROM and trachea midline; Absent tenderness, lymphadenopathy or thyromegaly Chest Chest inspection: Present normal inspection and symmetric chest wall rise; Absent tenderness or rash Respiratory Respiratory exam: Present normal lung sounds bilaterally; Absent respiratory distress, wheezes, stridor or accessory muscle use Cardiovascular Cardiovascular exam: Present regular rate, normal rhythm and normal heart sounds Abdominal Exam Abdominal exam: Present soft; Absent distention, tenderness, guarding, rebound or rigidity Extremities Exam Extremities exam: Present normal inspection, full ROM and normal capillary refill; Absent tenderness or calf tenderness Back Exam Back exam: Present normal inspection and full ROM; Absent tenderness Neurological Exam Neurological exam: Present alert and oriented X3 Psychiatric Psychiatric exam: Present normal affect and normal mood Skin Skin exam: Present warm, dry, intact and normal color Lymphatic Lymphatic Findings: no adenopathy Medical Decision Making Medical Records Medical records reviewed: No I reviewed the patient's medical records. Screening: Per USPSTF and CDC recommendations, given the prevalence of disease in our region, it is our hospital?s policy to screen for HIV and viral Hepatitis for all patients aged 18 and over and those with ongoing risk factors. Vinnie Inquiry Pt receiving controlled substance: No Lab Data Lab results reviewed: Yes I reviewed the patient's lab results.
[2024-04-07 11:33] VITALS: BP 130/84; PULSE 121; RESP 20; TEMP 37.6; O2SAT 95; BMI 36.5
[2024-04-07 11:40] LABS: UTC Strep Screen (Rapid) Negative (Negative)
[2024-04-07 11:41] LABS: UTC Influenza A Antigen Negative (Negative); UTC Influenza B Antigen Negative (Negative)
[2024-04-07 12:00] VITALS: BP 130/84; PULSE 121; RESP 20; TEMP 37.6
[2024-04-07 12:06] LABS: Coronavirus 19, PCR Not Detected (NotDetected); Influenza B, PCR Not Detected (NotDetected)
[2024-04-07 12:26] LABS: Influenza A, PCR Detected (NotDetected)
== END 2024-04-07 12:03 | disposition home or self-care (01) ==
PROVIDERS: Emergency Provider Nurse Practitioner Family; PCP Family Medicine
DX: J10.1 Influenza due to other identified influenza virus with other respiratory manifestations (principal); R50.9 Fever, unspecified; R05.9 Cough, unspecified; R11.0 Nausea
CPT/HCPCS: 87636; 87804; 87880; 99212; G0381

== ENCOUNTER 2024-05-14 18:24 | Outpatient (CLI) | payer BC, SELFPAY ==
[2024-05-14 19:08] LABS: Albumin Level 4.3 g/dl (3.5-5.0); Chloride 102 mmol/L (98-107); Sodium 139 mmol/L (136-145)
[2024-05-14 19:11] LABS: Alanine Aminotransferase 32 U/L (12-78); Albumin/Globulin Ratio 1.9 (1.1-1.8); Alkaline Phosphatase 65 U/L (38-126); Aspartate Amino Transferase 30 U/L (17-59); Bilirubin,Total 0.7 mg/dl (0.2-1.3); Blood Urea Nitrogen 13 mg/dl (9-20); Carbon Dioxide 26 mmol/L (22.0-30.0); Cholesterol 159 mg/dl (140-200); Estimated Glomerular Filt Rate 160 ml/min (>60); GFR (African American) 194 ML/MIN (>60); Globulin 2.3 g/dL (1.3-3.2); Total Protein,Serum 6.6 g/dl (6.3-8.2); Triglycerides 66 mg/dl (30-150); VLDL Cholesterol 13 mg/dL (0-40)
[2024-05-14 19:12] LABS: Calcium 9.1 mg/dl (8.4-10.2); Chol/HDL Ratio 4.1 (1-3.5); Glucose 81 mg/dl (74-100); HDL Cholesterol 39 mg/dl (40-60)
[2024-05-14 19:23] LABS: Direct LDL Cholesterol 99.04 mg/dL (100-129)
[2024-05-15 09:53] LABS: Triiodothryronine (T3) Uptake 37 % (23.5-40.5)
[2024-05-15 09:54] LABS: Free Thyroxine Index 3.2 ug/dL (5.93-13.13); T4 (Thyroxine) 8.7 ug/dl (5.53-11.0)
[2024-05-15 10:07] LABS: Thyroid Stimulating Hormone 6.85 uIU/mL (0.465-4.68)
== END 2024-05-14 23:59 | disposition home or self-care (01) ==
LOC: LAB 18:25
PROVIDERS: PCP Family Medicine; Visit Provider Family Medicine
DX: Z00.00 Encounter for general adult medical examination without abnormal findings (principal); R94.6 Abnormal results of thyroid function studies
CPT/HCPCS: 80053; 80061; 83036; 84436; 84443; 84479

== ENCOUNTER 2024-06-06 11:31 | Outpatient (CLI) | payer BC, SELFPAY ==
[2024-06-06 13:25] LABS: Triiodothryronine (T3) Uptake 39 % (23.5-40.5)
[2024-06-06 13:26] LABS: Free Thyroxine Index 2.8 ug/dL (5.93-13.13); T4 (Thyroxine) 7.3 ug/dl (5.53-11.0)
[2024-06-06 13:39] LABS: Thyroid Stimulating Hormone 3.86 uIU/mL (0.465-4.68)
[2024-06-08 10:11] LABS: Thyroid Peroxidase Antibodies <9 IU/mL (0-34)
== END 2024-06-06 23:59 | disposition home or self-care (01) ==
LOC: LAB 11:32
PROVIDERS: Family Medicine; PCP Family Medicine; Visit Provider Family Medicine
DX: E03.9 Hypothyroidism, unspecified (principal); R94.6 Abnormal results of thyroid function studies
CPT/HCPCS: 84436; 84443; 84479; 86376

== ENCOUNTER 2024-06-13 09:01 | Outpatient (CLI) | payer BC, SELFPAY ==
--- NOTE | 2024-06-13 09:02 | US_ITS ---
FINAL REPORT CLINICAL HISTORY: hypothyroid COMPARISON: None FINDINGS: THYROID ULTRASOUND: The right lobe of the thyroid gland measures 4.5 x 1.3 x 1.2 cm in size. The left lobe of the thyroid gland measures 3.8 x 1.1 x 1.2 cm in size. The isthmus measures 6.5 mm in thickness. No focal masses or nodules are identified in the thyroid gland. IMPRESSION: Unremarkable thyroid ultrasound without evidence of mass or nodule. Reviewed, Interpreted and Dictated by Giulia Sifuentes MD Transcribed by Lillian Pedro Authenticated and . [facility]
== END 2024-06-13 23:59 | disposition home or self-care (01) ==
LOC: RAD 09:02
PROVIDERS: PCP Family Medicine; Visit Provider Family Medicine
DX: E03.9 Hypothyroidism, unspecified (principal)
CPT/HCPCS: 76536